=== PATIENT | male | born 1995 | race Caucasian/White ===

== ENCOUNTER 2016-12-30 23:40 | Emergency (ER) | payer OTHER ==
[2016-12-31 00:02] VITALS: BP 129/74; PULSE 82; TEMP 98.1; BMI 25.0
[2016-12-31] MEDS ORDERED: CYCLOBENZAPRINE HCL 10 MG TABLET (FP) PO ONE (01:01)
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
[2016-12-31] MEDS ORDERED: CYCLOBENZAPRINE HCL 10 MG TABLET (FP) ONE (01:06)
== END 2016-12-31 01:53 | disposition home or self-care (01) ==
LOC: JER 23:40
DX: M54.5 Low back pain (principal); V43.52XA Car driver injured in collision with other type car in traffic accident, initial encounter; Y93.89 Activity, other specified; Y92.410 Unspecified street and highway as the place of occurrence of the external cause
CPT/HCPCS: 99283-25

== ENCOUNTER 2017-09-21 20:33 | Emergency (ER) | payer BC, OTHER ==
[2017-09-21 20:46] LABS: PH,URINE 5.5 (4.5-8); URINE APPEARANCE Clear; URINE BILIRUBIN Negative (NEGATIVE); URINE GLUCOSE (UA) Negative (NEGATIVE); URINE KETONE Trace (NEGATIVE); URINE LEUK ESTERASE Negative (NEGATIVE); URINE NITRITE Negative (NEGATIVE); URINE PROTEIN Negative (NEGATIVE); URINE UROBILINOGEN 0.2 (0.2-1.0)
[2017-09-21 20:47] LABS: URINE BLOOD Trace-intact (NEGATIVE); URINE COLOR YELLOW
--- NOTE | 2017-09-21 20:58 | PDOC ---
History of Present Illness - History of Present Illness Initial Comments: 09/21/17 21:46 The patient is a 21-year-old male, with no significant past medical history, who presents to the ED with complaints of dysuria and hematuria that began a few days ago. Pt is concerned for kidney stones since he has an uncle who had stones and experienced similar symptoms. He also reports that he is experiencing intermittent lower back pain that is worsened when he sits for long periods of time. For the last two days, the pt has been experiencing headache and intermittent nausea. Pt does admit to holding in his urine due to burning sensation he experiences when he urinates. He denies any frequency or urgency. He denies any fever, chills, vomiting, or abdominal pain. <Rupal Browning - Last Filed: 09/21/17 21:44> <Dayami Barbosa - Last Filed: 09/22/17 05:54> - General Chief Complaint: Pain Stated Complaint: PENILE PAIN Time Seen by Provider: 09/21/17 20:35 Past History <Rupal Browning - Last Filed: 09/21/17 21:44> - Surgical History Orthopedic Surgery: Yes (RIGHT FEMUR) - Immunization History Immunization Up to Date: Yes - Suicide/Smoking/Psychosocial Hx Smoking Status: Yes Smoking History: Current some day smoker Have you smoked in the past 12 months: Yes Number of Cigarettes Smoked Daily: 0 If you are a former smoker, when did you quit?: [facility] 'Breaking Loose' booklet given: 07/16/16 Hx Alcohol Use: No Drug/Substance Use Hx: No Substance Use Type: None <Dayami Barbosa - Last Filed: 09/22/17 05:54> - Past Medical History Allergies/Adverse Reactions: Allergies Allergy/AdvReac Type Severity Reaction Status Date / Time ketorolac tromethamine Allergy Intermediate Rash Verified 12/30/16 23:54 [From Toradol] Penicillins Allergy Verified 12/30/16 23:54 Home Medications: Ambulatory Orders No Home Medications 0 dose .ROUTE UTDICT 04/28/12 *Physical Exam - Vital Signs Last Vital Signs Temp Pulse Resp BP Pulse Ox 98.8 F 87 16 146/84 98 09/21/17 20:35 09/21/17 20:35 09/21/17 20:35 09/21/17 20:35 09/21/17 20:35 - Physical Exam Comments: 09/21/17 21:49 GENERAL: Well developed, well nourished. Awake and alert. No acute distress. HEENT: Normocephalic, atraumatic. PERRLA, EOMI. No conjunctival pallor. Sclera are non- icteric. Moist mucous membranes. Oropharynx is clear. NECK: Supple. Full ROM. No JVD. Carotid pulses 2+ and symmetric, without bruits. No thyromegaly. No lymphadenopathy. CARDIOVASCULAR: Regular rate and rhythm. No murmurs, rubs, or gallops. Distal pulses are 2+ and symmetric. PULMONARY: No evidence of respiratory distress. Lungs clear to auscultation bilaterally. No wheezing, rales or rhonchi. ABDOMINAL: Soft. Non-tender. Non-distended. No rebound or guarding. No organomegaly. Normoactive bowel sounds. Exam: No tenderness, no masses, no lesions of the scrotum or penis. MUSCULOSKELETAL (+)Mild right-sided CVA and flank tenderness. Normal range of motion at all joints. No bony deformities. EXTREMITIES: No cyanosis. No clubbing. No edema. No calf tenderness. SKIN: Warm and dry. Normal capillary refill. No rashes. No jaundice. NEUROLOGICAL: Alert, awake, appropriate. Cranial nerves 2-12 intact. PSYCHIATRIC: Cooperative. Good eye contact. Appropriate mood and affect. <Rupal Browning - Last Filed: 09/21/17 21:44> ED Treatment Course - ADDITIONAL ORDERS Additional order review: Laboratory Results 09/21/17 20:30 Urine Color Yellow Urine Appearance Clear Urine pH 5.5 Ur Specific [place] >= 1.030 H Urine Protein Negative Urine Glucose (UA) Negative Urine Ketones Trace Urine Blood Trace-intact H Urine Nitrite Negative Urine Bilirubin Negative Urine Urobilinogen 0.2 Ur Leukocyte Esterase Negative Urine RBC 2-5 Urine WBC 2-4 Urine Bacteria Few <Rupal Browning - Last Filed: 09/21/17 21:44> - ADDITIONAL ORDERS Additional order review: Laboratory Results 09/21/17 20:30 Urine Color Yellow Urine Appearance Clear Urine pH 5.5 Ur Specific [place] >= 1.030 H Urine Protein Negative Urine Glucose (UA) Negative Urine Ketones Trace Urine Blood Trace-intact H Urine Nitrite Negative Urine Bilirubin Negative Urine Urobilinogen 0.2 Ur Leukocyte Esterase Negative <Dayami Barbosa - Last Filed: 09/22/17 05:54> Progress Note - Progress Note Progress Note: Documentation has been prepared under my direction and personally reviewed by me in its entirety. I attest that this documented accurately reflects all work, treatment, procedures and medical decision making performed by me. <Dayami Barbosa - Last Filed: 09/22/17 05:54> Medical Decision Making - Medical Decision Making As noted above, this patient presents with right flank pain and dysuria. Exam as noted with right flank tenderness and no other abnormality. Urinalysis showed microscopic hematuria with few experience few white cells. Urine culture and sensitivity sent. Renal stone protocol CT showed no evidence of ureteral stone or hydronephrosis/ hydroureter. No other abnormality of great significance was seen either. Because patient has persistent dysuria and described some bleeding at the penile meatus, urethral GC/Chlamydia culture performed. He will be treated for urethritis. Because he has an ALLERGY to penicillin with unclear manifestations (patient was a baby when ALLERGY was first seen), patient will be given Levaquin 250 mg and azithromycin 1 g now by mouth for treatment of his urethritis. Patient's girlfriend who is present should also be evaluated for STDs. The patient is cautioned to use safe sex practices until diagnostic testing is completed in himself and his partner. Urology referral (Dr. Tillman) given to the patient; he should follow up within the next week <Dayami Barbosa - Last Filed: 09/22/17 05:54> *DC/Admit/Observation/Transfer - Attestations Scribe Attestion: 09/21/17 21:55 Documentation prepared by Rupal Browning, acting as medical facilities section director for Dayami Barbosa MD. <Rupal Browning - Last Filed: 09/21/17 21:44> <Dayami Barbosa - Last Filed: 09/22/17 05:54> Diagnosis at time of Disposition: Urethritis - Discharge Dispostion Disposition: HOME Condition at time of disposition: Stable - Referrals Referrals: Ren Tillman MD [Staff Physician] - 1 week - Patient Instructions Printed Discharge Instructions: Urethritis Additional Instructions: Drink plenty of water Use safe sex practices until diagnostic tests are completed Follow-up with urologist () within 1 week Return to ER if you have severe pain, fever or vomiting
[2017-09-21 21:11] VITALS: BP 146/84; PULSE 87; TEMP 98.8; BMI 29.1
[2017-09-21 21:14] LABS: URINE BACTERIA FEW /hpf (NEGATIVE)
[2017-09-22] MEDS ORDERED: AZITHROMYCIN 500 MG TABLET PO ONE (00:02)
[2017-09-22] MEDS ORDERED: LEVOFLOXACIN 250 MG TABLET (FP) PO ONE (00:09)
[2017-09-22] MEDS ORDERED: AZITHROMYCIN 500 MG TABLET ONE (00:09)
[2017-09-22] MEDS ORDERED: LEVOFLOXACIN 250 MG TABLET (FP) ONE (00:10)
== END 2017-09-22 00:17 | disposition home or self-care (01) ==
LOC: FER 20:33
DX: N34.2 Other urethritis (principal); F17.210 Nicotine dependence, cigarettes, uncomplicated
CPT/HCPCS: 36415; 74176; 81003; 81015; 87086; 87491; 87591; 99281-25

== ENCOUNTER 2019-02-20 20:38 | Emergency (ER) | payer BC ==
[2019-02-20 20:44] VITALS: BP 125/84; PULSE 88; TEMP 97.8; BMI 29.8
[2019-02-20] MEDS ORDERED: ACETAMINOPHEN 500 MG TABLET (FP) PO ONE (20:48)
[2019-02-20] MEDS ORDERED: ACETAMINOPHEN 500 MG TABLET (FP) ONE (20:55)
--- NOTE | 2019-02-20 21:30 | PDOC ---
Documentation entered by Missael Dewitt SCRIBE, acting as scribe for Reanna Dominique MD. Reanna Dominique MD: This documentation has been prepared by the Renate roblero Nirvannie, SCRIBE, under my direction and personally reviewed by me in its entirety. I confirm that the documentation accurately reflects all work, treatment, procedures, and medical decision making performed by me. History of Present Illness - General Chief Complaint: Pain Stated Complaint: LEFT SHOULDER PAIN Time Seen by Provider: 02/20/19 20:48 History Source: Patient Exam Limitations: No Limitations - History of Present Illness Initial Comments: 02/20/19 20:59 HPI: The patient is a 23 year old male, with no significant past medical history, who presents to the emergency department with, left shoulder pain radiating to the scapula onsetting when he woke up this morning. As per patient, he believes his left shoulder is situated lower than his right shoulder. He denies any recent trauma to the area or heavy lifting. He denies any recent chest pain or shortness of breath. PAST MEDICAL HISTORY: no significant history PAST SURGICAL HISTORY: no significant history FAMILY HISTORY: no pertinent history SOCIAL HISTORY: Pt lives with family and is employed. MEDICATIONS: reviewed ALLERGIES: As per nursing notes ROS: General: No fevers or chills, no weakness, no weight loss HEENT: No change in vision. No sore throat,. No ear pain CardioVascular: No chest pain or shortness of breath Respiratory:No cough, or wheezing. Gastrointestinal: no nausea, vomiting, diarrhea or constipation, No rectal bleeding Genitourinary: No dysuria, hematuria, or frequency Musculoskeletal: +Left shoulder and scapula pain. No joint swelling Neurologic: No headache, vertigo, dizziness or loss of consciousness Psychiatric: nor depression Skin: No rashes or easy bruising Endocrine: no increased thirst or abnormal weight change Allergic: no skin or latex allergy All other systems reviewed and normal Physical Exam: GENERAL: The patient is awake, alert, and fully oriented, in no acute distress. HEAD: Normal with no signs of trauma. EYES: Pupils equal, round and reactive to light, extraocular movements intact, sclera anicteric, conjunctiva clear. EXTREMITIES: +Left shoulder: Tenderness on palpation to the anterior rotator cuff. No deformity, ecchymosis, or swelling. Decreased ROM secondary to pain but , is able to ROM shoulder with complaint of pain. NEUROLOGICAL: Normal speech, normal gait. PSYCH: Normal mood, normal affect. SKIN: Warm, Dry, normal turgor, no rashes or lesions noted. 02/20/19 21:28 Assessment and plan: This is a 23-year-old male who comes in complaining of left shoulder pain. Patient will help with pain in his left shoulder. Patient has full range of motion but it is uncomfortable. Patient is neurovascularly intact. He was done that was negative for any acute pathology Was given sling and orthopedic follow-up Past History - Past Medical History Allergies/Adverse Reactions: Allergies Allergy/AdvReac Type Severity Reaction Status Date / Time Penicillins Allergy Severe Verified 02/20/19 20:39 ketorolac tromethamine Allergy Intermediate Rash Verified 02/20/19 20:39 [From Toradol] Home Medications: Ambulatory Orders No Home Medications 0 dose .ROUTE UTDICT 04/28/12 COPD: No - Surgical History Orthopedic Surgery: Yes (RIGHT FEMUR) - Immunization History Immunization Up to Date: Yes - Suicide/Smoking/Psychosocial Hx Smoking Status: Yes Smoking History: Never smoked Have you smoked in the past 12 months: No Number of Cigarettes Smoked Daily: 0 If you are a former smoker, when did you quit?: [employer] Information on smoking cessation initiated: Yes 'Breaking Loose' booklet given: 07/16/16 Hx Alcohol Use: No Drug/Substance Use Hx: No Substance Use Type: None Trauma Specific PMHX - Complaint Specific PMHX Back Injury: No *Physical Exam - Vital Signs Last Vital Signs Temp Pulse Resp BP Pulse Ox 97.8 F 88 20 125/84 98 02/20/19 20:38 02/20/19 20:38 02/20/19 20:38 02/20/19 20:38 02/20/19 20:38 ED Treatment Course - RADIOLOGY Radiology Studies Ordered: Category Date Time Status SHOULDER-LEFT [RAD] Stat Radiology 02/20/19 20:49 Ordered - Medications Given in the ED: ED Medications Discontinued Medications Generic Name Dose Route Start Last Admin Trade Name Freq PRN Reason Stop Dose Admin Acetaminophen 1,000 mg 02/20/19 20:48 02/20/19 20:59 Tylenol - PO 02/20/19 20:49 1,000 mg ONCE ONE Administration *DC/Admit/Observation/Transfer Diagnosis at time of Disposition: Left shoulder pain Qualifiers: Chronicity: acute Qualified Code(s): M25.512 - Pain in left shoulder - Discharge Dispostion Disposition: HOME Decision to Admit order: No - Referrals Referrals: Caio Howe MD [Staff Physician] - - Patient Instructions Additional Instructions: For the pain you can take Tylenol 2 tablets as often as every 4-6 hours as needed. The sling for comfort as needed. Follow-up with the orthopedist Dr. Howe. Return to the emergency department immediately with ANY new, persistent or worsening symptoms. Continue any medications as previously prescribed by your physician. You should follow up with your primary doctor as soon as possible regarding today's emergency department visit. . Please make sure your doctor reviews the results of your emergency evaluation. Thank you for coming to the Emergency Department today for your care. It was a pleasure to see you today. Please note that your evaluation is INCOMPLETE until you follow-up with your doctor. - Post Discharge Activity
== END 2019-02-20 21:36 | disposition home or self-care (01) ==
LOC: FER 20:38
DX: M25.512 Pain in left shoulder (principal); Z88.0 Allergy status to penicillin; Z88.6 Allergy status to analgesic agent
CPT/HCPCS: 73030-TC-LT-FY; 99282-25

== ENCOUNTER 2021-05-22 14:35 | Emergency (ER) | payer SELFPAY ==
[2021-05-22] MEDS ORDERED: NAPROXEN 500 MG TABLET PO ONE (15:07)
[2021-05-22] MEDS ORDERED: NAPROXEN 500 MG TABLET ONE (15:22)
[2021-05-22 15:29] VITALS: BP 137/86; PULSE 85; TEMP 99.3; BMI 31.1
[2021-05-24 23:07] LABS: SARS-CoV-2 NAA Detected (Not Detected)
== END 2021-05-22 16:08 | disposition home or self-care (01) ==
LOC: FER 14:35
DX: R07.9 Chest pain, unspecified (principal); R05 Cough; R50.9 Fever, unspecified
CPT/HCPCS: 71045-TC-FY; 87804; 93005; 99285-25; C9803; U0003; U0005